=== PATIENT | female | born 1985 | race Caucasian/White ===

== ENCOUNTER 2016-10-13 14:52 | Emergency (ER) | payer MEDICAID ==
[2016-10-13] MEDS ORDERED: OPTIRAY 350 100 ML VIAL HMH IV ONE (14:53)
[2016-10-13] MEDS ORDERED: SODIUM CHLORIDE 0.9% 1,000 ML ONE (16:19)
[2016-10-13] MEDS ORDERED: DILAUDID 1 MG/ML AMP ONE (16:19)
== END 2016-10-13 19:17 | disposition home or self-care (01) ==
LOC: ER 14:52
DX: K59.00 Constipation, unspecified (principal); Z79.899 Other long term (current) drug therapy; F17.210 Nicotine dependence, cigarettes, uncomplicated
CPT/HCPCS: 36415; 74177; 80053; 81001; 83690; 85025; 96361; 96374